=== PATIENT | male | born 1960 | race Caucasian/White ===

== ENCOUNTER 2018-04-14 22:26 | Emergency (ER) | payer SELFPAY ==
[~2018-04-14] VITALS: Ht 185.4 cm; Wt 100.0 kg
[~2018-04-14 22:26] MED LIST: KEFLEX500 MG PO; LORTAB 5/3255 MG PO; LORTAB5 PO; NAPROSYN500 MG PO; NAPROXEN500 MG PO; NO; PREVACID30 M1 PO; ROCEPHIN 2250 MG/VIA IM
[2018-04-14 23:33] VITALS: BP 138/92
== END 2018-04-14 23:15 | disposition home or self-care (01) | DRG 125 ==
LOC: ED 22:26
DX: H16.133 Photokeratitis, bilateral (principal); F17.200 Nicotine dependence, unspecified, uncomplicated; W89.8XXA Exposure to other man-made visible and ultraviolet light, initial encounter; Y92.89 Other specified places as the place of occurrence of the external cause; Y99.0 Civilian activity done for income or pay

== ENCOUNTER 2021-05-15 05:41 | Emergency (ER) | payer SELFPAY ==
[~2021-05-15] VITALS: Ht 185.4 cm; Wt 125.0 kg
[2021-05-15] MEDS ORDERED: GABAPENTIN300 M2 (06:02)
[2021-05-15] MEDS ORDERED: IBUPROFEN600 MG PO (07:17)
[2021-05-15] MEDS ORDERED: HYDROCO/APAP1 TA9 PO (07:17)
[2021-05-15 07:20] VITALS: BP 150/76
== END 2021-05-15 07:32 | disposition home or self-care (01) | DRG 605 ==
LOC: ED 05:41
DX: S20.212A Contusion of left front wall of thorax, initial encounter (principal); S20.312A Abrasion of left front wall of thorax, initial encounter; F17.200 Nicotine dependence, unspecified, uncomplicated; W01.198A Fall on same level from slipping, tripping and stumbling with subsequent striking against other object, initial encounter; Y93.E1 Activity, personal bathing and showering; Y92.002 Bathroom of unspecified non-institutional (private) residence as the place of occurrence of the external cause

== ENCOUNTER 2023-01-28 16:59 | Emergency (ER) | payer SELFPAY ==
[~2023-01-28 16:59] MED LIST changes: +GABAPENTIN300 M2; +HYDROCO/APAP1 TA9 PO; +IBUPROFEN600 MG PO
== END 2023-01-28 18:00 | disposition left against medical advice (07) | DRG 951 ==
LOC: ED 16:59 → LWOBS 18:00
DX: Z53.21 Procedure and treatment not carried out due to patient leaving prior to being seen by health care provider (principal)

== ENCOUNTER 2023-08-14 11:27 | Emergency (ER) | payer SELFPAY ==
[~2023-08-14] VITALS: Ht 185.4 cm; Wt 99.8 kg
[2023-08-14 12:15] VITALS: BP 143/86
[2023-08-14] MEDS ORDERED: LIDOcaine HCl 1% (Local Anesth.) 20 ML VIAL STI STA (12:19)
[2023-08-14] MEDS ORDERED: SODIUM CHLORIDE 500 ML BTL IR ONE (12:20)
[2023-08-14] MEDS ORDERED: POVIDONE IODINE 0.5 OZ/BTL TOP ONE (12:20)
[2023-08-14] MEDS ORDERED: NEOMYCIN-BACITRACIN-POLYMYXIN 0.5 GM/PAK PAK TOP ONE (12:20)
[2023-08-14] MEDS ORDERED: BUPIVACAINE HCL PF 0.5 % 50 MG/10 ML SDV STI ONE (12:25)
[2023-08-14] MEDS ORDERED: KEFLEX500 MG PO (13:20)
[2023-08-14] MEDS ORDERED: LORTAB 7.57.5 MG PO (13:20)
[2023-08-14 13:42] VITALS: BP 143/86
== END 2023-08-14 13:48 | disposition home or self-care (01) | DRG 605 ==
LOC: ED 11:27
PROC: 0JQK3ZZ Repair Left Hand Subcutaneous Tissue and Fascia, Percutaneous Approach (ICD-10-PCS; principal; 2023-08-14)
DX: S61.012A Laceration without foreign body of left thumb without damage to nail, initial encounter (principal); F17.210 Nicotine dependence, cigarettes, uncomplicated; W29.8XXA Contact with other powered hand tools and household machinery, initial encounter; W26.8XXA Contact with other sharp object(s), not elsewhere classified, initial encounter